=== PATIENT | female | born 1950 | race Caucasian/White ===

== ENCOUNTER 2020-11-01 09:21 | Observation (INO) ==
--- NOTE | 2020-10-26 10:57 | Anesthesiology Consultation ---
Date of Service October 26, 2020 Assessment & Plan (1) Encounter for pre-operative examination: Chart Review Chart Review: Acceptable Risk for Surgery and Patient NOT seen in Pre Admission Testing Consults Requested none History Surgery Operation Date: 11/01/20 10:25 Proposed Procedures p Right Total Knee Arthroplasty - Manan Lyoola DO Height/Weight Height: 5 ft 2.5 in Weight: 61.235 kg Allergies Allergy/AdvReac Type Severity Reaction Status Date / Time house dust Allergy Mild Per Verified 10/23/20 10:07 allergy testing amoxicillin Allergy Unknown PT NOT SURE Verified 10/23/20 10:07 gabapentin [From Neurontin] Allergy Unknown "MESSED MY Verified 10/23/20 10:07 BRAIN UP, ENDED UP IN PSYCH BAIG" lisdexamfetamine Allergy Unknown PT NOT SURE Verified 10/23/20 10:07 [From Vyvanse] morphine Allergy Unknown SWELLING Verified 10/23/20 10:07 tramadol Allergy Unknown PT NOT SURE Verified 10/23/20 10:07 codeine AdvReac Unknown N/V Verified 10/23/20 10:07 dextromethorphan AdvReac Unknown PT REPORTS Verified 10/23/20 10:07 CAN'T TAKE BECAUSE ON WELLBUTRIN Medications Home Medications Medication Instructions Recorded Confirmed Last Taken albuterol sulfate 2 inh INHALATION UD PRN 08/01/20 10/23/20 Unknown ascorbic acid (vitamin C) [Vitamin 500 mg PO DAILY 08/01/20 10/23/20 Unknown C] benzonatate [Tessalon Perles] 100 mg PO UD PRN 08/01/20 10/23/20 Unknown biotin 5,000 mcg SUBLINGUAL DAILY 08/01/20 10/23/20 Unknown bupropion HCl [Wellbutrin XL] 150 mg PO QAM 08/01/20 10/23/20 Unknown cholecalciferol (vitamin D3) 50 mcg PO DAILY 08/01/20 10/23/20 Unknown [Vitamin D3] conjugated estrogens [Premarin] 0.625 mg VAGINAL UD PRN 08/01/20 10/23/20 Unknown cyclobenzaprine [Flexeril] 10 mg PO UD PRN 08/01/20 10/23/20 Unknown dexmethylphenidate [Focalin] 10 mg PO BID 08/01/20 10/23/20 Unknown diclofenac sodium [Voltaren] 2 g TOPICAL UD PRN 08/01/20 10/23/20 Unknown levothyroxine 112 mcg PO QAM 08/01/20 10/23/20 Unknown meclizine 25 mg PO UD PRN 08/01/20 10/23/20 Unknown multivitamin 1 cap PO DAILY 08/01/20 10/23/20 Unknown naproxen 500 mg PO UD PRN 08/01/20 10/23/20 Unknown tolterodine [Detrol LA] 2 mg PO QAM 08/01/20 10/23/20 Unknown zinc 50 mg PO DAILY 08/01/20 10/23/20 Unknown ipratropium bromide See Rx Instructions .ROUTE .COMPLEX 08/15/20 10/23/20 Unknown prednisone See Rx Instructions .ROUTE .COMPLEX 10/23/20 Unknown Past Medical History Medical History ADHD Allergic cough PT REPORTS ALLERGY COUGH - CHRONIC AND UNCHANGED Depression History of Lyme disease Hypothyroid Nerve damage NERVE DAMAMGE - LEFT ULNAR NERVE - PART OF LEFT HAND ALWAYS NUMB Reactive airway disease "MILD FORM OF ASTHMA" Thalassemia minor Past Family History Family History Other No family history of adverse response to anesthesia Past Surgical History Surgical History History of arthroscopy of left knee History of arthroscopy of right knee History of breast surgery FIBROID TUMORS REMOVED BOTH BREASTS - HX LUMPECTOMY (MULTIPLE) AND BIOPSIES (MULTIPLE) History of cholecystectomy History of partial thyroidectomy History of surgery on arm LEFT - ORIF (2 PLATES AND 14 SCREWS) History of tubal ligation Social History Smoking Status: Never smoker Do You Dip or Chew Tobacco: No Hx Alcohol Use: Yes Alcohol type: wine alcohol intake frequency: 0-2 drinks per day Hx Substance Use: No substance use type: does not use Testing Laboratory Results Blood Type A Positive 10/25/20 11:47 Antibody Screen NEGATIVE 10/25/20 11:47 Laboratory Tests 08/07/20 10/25/20 10/25/20 11:28 11:44 11:44 WBC 8.96 Hgb 12.7 Plt Count 291 PT INR APTT Sodium 142 Potassium 4.5 Chloride 108 H Carbon Dioxide 31 BUN 10 Creatinine 0.76 Glucose 86 Hemoglobin A1c 5.2 10/25/20 11:44 WBC Hgb Plt Count PT 10.3 INR 1.0 APTT 24.9 Sodium Potassium Chloride Carbon Dioxide BUN Creatinine Glucose Hemoglobin A1c Electrocardiogram Date: 08/07/20 Normal sinus rhythm, rate 85 bpm Left axis deviation Left ventricular hypertrophy with QRS widening Cannot rule out Septal infarct (cited on or before 09-MAY-2016) Abnormal ECG When compared with ECG of 09-MAY-2016 12:24, No significant change Confirmed by Dony Callahan ([id number]) on 08/07/2020 2:33:30 PM Chest X-Ray Date: 08/07/20 Findings: + NAD
[~2020-11-01 09:21] MED LIST: BUPIVACAINE 0.5 % 5 MG/1 ML PF 10ML VIAL ONE; CLINDAMYCIN 600 MG/54 ML BAG IV SCH; EPINEPHrine INJ 1 MG/ML AMP ONE; LR 500ML BOLUS, THEN 15ML/HR IV SCH; ROPIVACAINE 0.5% HCL/PF 150 MG, BUPIVACAINE 0.75% MPF 20 ML, EPINEPHrine 30MG/30ML (OR ... INSTIL SCH
--- NOTE | 2020-11-01 09:52 | History & Physical Bridge Note ---
Date of Service November 01, 2020 History & Physical Bridge Note I have examined the patient, reviewed the History & Physical and in the interval since the performance of the History & Physical I have noted the following changes of clinical significance: no changes noted
[2020-11-01] MEDS ORDERED: TRANEXAMIC ACID / 0.7% NACL 1,000 MG/100 ML BAG IV ONE ×2 (09:55→09:56)
--- NOTE | 2020-11-01 10:25 | History & Physical Report ---
Date of Service November 01, 2020 Assessment & Plan Admission and Anticipated Discharge Date Admission Date: Plan for total knee arthroplasty right knee postoperative pain management DVT prophylaxis antibiotics History of Present Illness Primary Care Provider: Gladys Rey Allergies Allergy/AdvReac Type Severity Reaction Status Date / Time house dust Allergy Mild Per Verified 11/01/20 10:02 allergy testing amoxicillin Allergy Unknown PT NOT SURE Verified 11/01/20 10:02 gabapentin [From Neurontin] Allergy Unknown "MESSED MY Verified 11/01/20 10:02 BRAIN UP, ENDED UP IN PSYCH BAIG" lisdexamfetamine Allergy Unknown PT NOT SURE Verified 11/01/20 10:02 [From Vyvanse] morphine Allergy Unknown SWELLING Verified 11/01/20 10:02 tramadol Allergy Unknown PT NOT SURE Verified 11/01/20 10:02 codeine AdvReac Unknown N/V Verified 11/01/20 10:02 dextromethorphan AdvReac Unknown PT REPORTS Verified 11/01/20 10:02 CAN'T TAKE BECAUSE ON WELLBUTRIN Home Medications Medication Instructions Recorded Confirmed Type albuterol sulfate 2 inh INHALATION UD PRN 08/01/20 11/01/20 History ascorbic acid (vitamin C) [Vitamin 500 mg PO DAILY 08/01/20 11/01/20 History C] benzonatate [Tessalon Perles] 100 mg PO UD PRN 08/01/20 11/01/20 History biotin 5,000 mcg SUBLINGUAL DAILY 08/01/20 11/01/20 History bupropion HCl [Wellbutrin XL] 150 mg PO QAM 08/01/20 11/01/20 History cholecalciferol (vitamin D3) 50 mcg PO DAILY 08/01/20 11/01/20 History [Vitamin D3] conjugated estrogens [Premarin] 0.625 mg VAGINAL UD PRN 08/01/20 11/01/20 History cyclobenzaprine [Flexeril] 10 mg PO UD PRN 08/01/20 11/01/20 History dexmethylphenidate [Focalin] 10 mg PO BID 08/01/20 11/01/20 History diclofenac sodium [Voltaren] 2 g TOPICAL UD PRN 08/01/20 11/01/20 History levothyroxine 112 mcg PO QAM 08/01/20 11/01/20 History meclizine 25 mg PO UD PRN 08/01/20 11/01/20 History multivitamin 1 cap PO DAILY 08/01/20 11/01/20 History naproxen 500 mg PO UD PRN 08/01/20 11/01/20 History tolterodine [Detrol LA] 2 mg PO QAM 08/01/20 11/01/20 History zinc 50 mg PO DAILY 08/01/20 11/01/20 History ipratropium bromide See Rx Instructions .ROUTE .COMPLEX 08/15/20 11/01/20 Histo ry prednisone See Rx Instructions .ROUTE .COMPLEX 10/23/20 11/01/20 History Past Med/Surg History Medical History ADHD Allergic cough PT REPORTS ALLERGY COUGH - CHRONIC AND UNCHANGED Depression History of Lyme disease Hypothyroid Nerve damage NERVE DAMAMGE - LEFT ULNAR NERVE - PART OF LEFT HAND ALWAYS NUMB Reactive airway disease "MILD FORM OF ASTHMA" Thalassemia minor Surgical History History of arthroscopy of left knee History of arthroscopy of right knee History of breast surgery FIBROID TUMORS REMOVED BOTH BREASTS - HX LUMPECTOMY (MULTIPLE) AND BIOPSIES (MULTIPLE) History of cholecystectomy History of partial thyroidectomy History of surgery on arm LEFT - ORIF (2 PLATES AND 14 SCREWS) History of tubal ligation Family History Other No family history of adverse response to anesthesia Social History Smoking Status: Never smoker Second Hand Exposure: No; Do You Dip or Chew Tobacco: No; Hx Alcohol Use: Yes Alcohol type: wine Hx Substance Use: No Preferred Language: Amharic Communication Ability: Effective Computed Tomography Technician Required: No Beliefs That Will Affect Care: Shinto Shinto Beliefs: ORTHODOXY Current Living Situation: Alone Feels Safe at Home: Yes Safety Concerns: Feels Safe At This Time Assistive Devices: Contacts and Glasses Review of Systems Review of Systems: All systems reviewed & are unremarkable except as noted in HPI & below Constitutional: as per Subjective / HPI Eyes: as per Subjective / HPI Ear, Nose, Mouth, Throat: as per Subjective / HPI Respiratory: as per Subjective / HPI Cardiovascular: as per Subjective / HPI Gastrointestinal: as per Subjective / HPI Genitourinary: as per Subjective / HPI Musculoskeletal: as per Subjective / HPI Integumentary: as per Subjective / HPI Neurologic: as per Subjective / HPI Psychiatric: as per Subjective / HPI Endocrine: as per Subjective / HPI Hematologic / Lymphatic: as per Subjective / HPI Allergy / Immunological: as per Subjective / HPI Physical Exam Physical Exam: Patient presents with severe end-stage tricompartmental degenerative joint disease right knee for right total knee arthroplasty patient is failed all attempts conservative management physical therapy anti- inflammatories relative rest activity modification corticosteroid injectionShe is failed attempted conservative management and physical therapy anti- inflammatories relative rest activity modification she presents with a moderate to large effusion patellofemoral crepitation medial and lateral joint line pain tenderness Constitutional: WD/WN, vitals as above Eyes: PERRL, conjunctivae normal, anicteric sclerae ENMT: external ear and nose normal, oropharynx normal Neck: trachea midline, no thyromegaly Respiratory: normal respiratory effort, lungs clear to auscultation Cardiovascular: RRR, no murmur, no edema Chest (Breasts): normal inspection/palpation of breasts Gastrointestinal (Abdomen): normal bowel sounds, soft, nontender, no hepatosplenomegaly Musculoskeletal: no cyanosis or clubbing, extremities motor strength 5/5 Skin: no rashes, warm and dry Neurologic: patellar DTR's 2+ bilat, sensation intact Psychiatric: A+Ox3, euthymic affect Genitourinary: no vaginal lesions, no adnexal mass Lymphatic: no cervical or axillary lymphadenopathy
[2020-11-01] MEDS ORDERED: fentaNYL citrate 100 MCG/2 ML VIAL ONE (11:42)
[2020-11-01] MEDS ORDERED: MIDAZOLAM HCL 1 MG/ML 2ML VIAL ONE ×2 (11:42→12:40)
[2020-11-01] MEDS ORDERED: PROPOFOL IV EMULSION 10 MG/ML 20 ML VIAL IV ONE ×4 (12:36→14:10)
[2020-11-01] MEDS ORDERED: ORTHO JOINT ANESTHETIC ONE (13:20)
[2020-11-01] MEDS ORDERED: BACITRACIN INJ 50,000 UNIT VIAL ONE (13:20)
[2020-11-01] MEDS ORDERED: HYDROCORTISONE SOD SUCCINATE 100 MG/2 ML VIAL ONE (13:59)
[2020-11-01] MEDS ORDERED: PHENYLEPHRINE HCL 10 MG/ML VIAL ONE (14:25)
[2020-11-01] MEDS ORDERED: ONDANSETRON INJ 2 MG/ML 2 ML VIAL IV PRN ×2 (14:32→16:58)
[2020-11-01] MEDS ORDERED: ATROPINE SULFATE 0.1 MG/ML 10ML SYR IV PRN (14:32)
--- NOTE | 2020-11-01 14:42 | Operative Report ---
Post Operative Report Pre & Post Diagnosis Operation Date: 11/01/20 11:25 Pre-Op Diagnosis: Unilateral primary osteoarthritis of right knee Post-Op Diagnosis: Unilateral primary osteoarthritis of right knee I identified the patient and participated in the time-out.: Yes Procedure Operation Date: 11/01/20 11:25 Actual Procedures p Right Total Knee Arthroplasty(Right utilizing [employer] journey 2 patient matched total knee arthroplasty size 5 femur 3 tibia 11 polyethylene 29 oval patella- Manan Loyola DO Surgeon Manan Loyola DO Ceramic Tile Setter Myron CARCAMO Estimated Blood Loss 10 Findings Consistent with Post-Op Diagnosis Patient presents with severe end-stage tricompartmental degenerative joint disease varus alignment subchondral sclerosis marginal osteophytes moderate to large effusion Specimens Bone and cartilage Drains Medium bore Hemovac Anesthesia Type MAC Spinal Regional Disposition Accompanied Patient To Recovery: No Disposition: Recovery Room Indications Patient presents with severe end-stage DJD right knee no response to conservative management clinic physical therapy anti-inflammatories relative rest activity modification corticosteroid injection Visco supplementation the above intraoperative findings were noted. Description of Procedure After proper prepping and draping of the Right lower extremity anterior midline incision was made over the region of the extensor extensor mechanism after meticulous hemostasis was obtained and maintained in subcutaneous tissues a m edial parapatellar incision was made The patella was subluxed lateralward the medial lateral gutter were cleaned from any hypertrophic synovitis and scar tissue of the distal femoral block was placed and the distal femoral osteotomy cut was made subsequently the chamfers anterior and posterior osteotomy cuts were made utilizing the 4-in-1 block the tibia was subsequently subluxed anteriorward medial and ateral meniscal remnants were excised in their entirety remnants of the anterior and posterior cruciate ligaments were excised in their entirety excellent exposure of the proximal tibia was obtained the tibial osteotomy guide was placed on the proximal tibial osteotomy cut was made once again the knee was irrigated with copious amounts of sterile saline solution the patella was subsequently everted lateralward thickened scar tissue around the patella was removed the patella was subsequently cut utilizing a freehand technique and was drilled prepared for final preparation and placement of patella socially flexion-extension gaps were checked and the equal and symmetric trials were placed to the appropriate femoral and tibial trials with poly-spacer being placed for equal flexion and extension gaps and full range of motion including extension to 0 and flexion to 140 the trial components after having been taken to recovery range of motion was subsequently removed meticulous hemos tasis was obtained and maintained subsequently a knee block injection of joint cocktail including ropivacaine 0.5% 150 mg. Bupivacaine 0.5% epinephrine 1- 200,030 mL's toradol 30 mg dexamethasone 4 mg ketamine 10 mg clonidine 100 micrograms normal saline solution 30 mg was infiltrated into the soft tissues of the posterior knee medial lateral gutters and periosteal synovium special attention was paid to protect neurovascular structures at all times subsequently trial components having been removed the knee was irrigated with sterile saline solution. debris was removed the proximal tibia was subsequently prepared and was made ready for the placement of the tibial component tibial component was also cemented and tamped into position the femoral component was subsequently placed and cemented in the position the patellar component was subsequently cemented in position because hemostasis once again obtained and maintained wound having been thoroughly irrigated with debridement and debridement lavage was performed as well as a medial parapatellar incision closed with #1 Vicryl in interrupted fashion subcutaneous was closed with #2 Vicryl skin was closed with skin clips. PA-C was necessary for prepping and drapping as well as wound closure of deep fascia Sub cutaneous tissue and skin and was necessary for the case. A sterile compressive dressing was placed patient was taken to recovery in stable condition of report dictated by Nir I attest to the content of the Intraoperative Record and any orders documented therein. Any exceptions are noted below. I attest to the content of the Intraoperative Record and any orders documented therein. Any exceptions are noted below.
--- NOTE | 2020-11-01 15:58 | XRay Report ---
XR knee RT 1 or 2V routine HISTORY: 70 years-old Female Surgical Post Op right knee total joint arthroplasty COMPARISON: None TECHNIQUE: 2 views the right knee FINDINGS: Right knee total joint arthroplasty and patella resurfacing. Anterior midline skin leonor are noted along with expected postsurgical soft tissue swelling and deep tissue air with surgical drainage cath eter. No acute fracture or unexpected opaque foreign body. IMPRESSION: Right knee total joint arthroplasty with expected postoperative changes. ACT 112: Negative or not required by law. The above report was generated using voice recognition software. It may contain grammatical, syntax o r spelling errors. Electronically signed by: Gunnar Reyes M.D. 11/01/2020 3:57 PM
--- NOTE | 2020-11-01 16:24 | Anesthesiology Progress Note ---
Date of Service November 01, 2020 Anesthesia Post Procedure Vital Signs Vital Signs: Temp Pulse Pulse Resp BP Pulse Ox 11/01/20 16:00 36.4 C L 83 17 140/91 96 11/01/20 15:50 83 14 134/76 97 11/01/20 15:40 86 16 138/87 96 11/01/20 15:30 88 20 137/82 97 11/01/20 15:21 36.5 C 90 17 144/80 H 98 11/01/20 10:15 37.5 C 88 18 146/82 H 98 Transfer of Care Handoff Completed per policy Notes Mental Status: alert / awake / arousable and participated in evaluation Nausea / Vomiting: adequately controlled Pain: adequately controlled Airway Patency, RR, SpO2: stable & adequate BP & HR: stable & adequate Hydration State: stable & adequate Neuraxial Anesthesia: was administered and sensory block is resolving Anesthetic Complications: no major complications apparent and Pt Satisfied with anesthetic care
[2020-11-01] MEDS ORDERED: oxyCODONE HCL IR 5 MG TAB (IMMEDIATE RELEASE) PO PRN (16:58)
[2020-11-01] MEDS ORDERED: bisacodyL 10 MG SUPP PR PRN (16:58)
[2020-11-01] MEDS ORDERED: NALOXONE HCL 0.4 MG/1 ML VIAL/CARP IV PRN (16:58)
[2020-11-01] MEDS ORDERED: BENZONATATE 100 MG CAPSULE PO PRN (16:58)
[2020-11-01] MEDS ORDERED: MAGNESIUM HYDROXIDE SUSP 30 ML UDC PO PRN (16:58)
[2020-11-01] MEDS ORDERED: HYDROmorphone INJ 0.5 MG/0.5 ML SYR IV PRN (16:58)
[2020-11-01] MEDS ORDERED: MECLIZINE HCL 25 MG TAB PO PRN (17:24)
[2020-11-01] MEDS: FERROUS GLUCONATE 324 MG TAB PO SCH (17:29)
[2020-11-01] MEDS: ACETAMINOPHEN 500 MG TAB PO SCH ×2 (17:32→22:31)
[2020-11-01] MEDS: SODIUM CHLORIDE 0.9% 1000ML 1,000 ML IV SCH (17:33)
[2020-11-01] MEDS ORDERED: SENNA 8.6 MG TAB PO SCH (21:00)
[2020-11-01] MEDS: ASPIRIN 81 MG ECTAB PO SCH (21:05)
[2020-11-01] MEDS: IPRATROPIUM BROMIDE NASAL SPRAY 0.06% 15ML SCH (21:05)
[2020-11-01] MEDS: DOCUSATE SODIUM 100 MG CAP PO SCH (21:05)
[2020-11-01] MEDS: CLINDAMYCIN 600 MG in DEXTROSE 5% 50 ML IV SCH (22:31)
[2020-11-02] MEDS: SODIUM CHLORIDE 0.9% 1000ML 1,000 ML IV SCH (02:54)
[2020-11-02] MEDS: CLINDAMYCIN 600 MG in DEXTROSE 5% 50 ML IV SCH (05:40)
[2020-11-02] MEDS: ACETAMINOPHEN 500 MG TAB PO SCH ×2 (05:40→13:41)
[2020-11-02 06:25] LABS: Hematocrit (blood only) 32.2 % (37-47); Hemoglobin 10.5 g/dL (12.0-16.0); Mean Corpuscular Hemoglobin 21.3 pg (25-34); Mean Corpuscular Hgb Conc 32.6 g/dL (32-36); Mean Corpuscular Volume 65.3 fL (80-100); Platelet Count 273 K/uL (130-400); RDW Coefficient of Variation 17.1 % (11.5-14.5); RDW Standard Deviation 40.5 fL (36.4-46.3); Red Blood Count 4.93 M/uL (4.2-5.4); White Blood Count 13.64 K/uL (4.8-10.8)
[2020-11-02] MEDS ORDERED: LEVOTHYROXINE SODIUM 112 MCG TABLET PO SCH (06:30)
[2020-11-02 06:57] LABS: BUN Creatinine Ratio 19.7 (10-20); Calcium 8.4 mg/dl (8.5-10.1); Creatinine Clr Calc Pharmacy 74.6 ml/min; Est GFR (African American) 106.3; Est GFR (Non-African American) 91.7; Potassium 4.5 mmol/L (3.5-5.1)
[2020-11-02] MEDS: ASPIRIN 81 MG ECTAB PO SCH (08:21)
[2020-11-02] MEDS: DOCUSATE SODIUM 100 MG CAP PO SCH (08:22)
[2020-11-02] MEDS: FERROUS GLUCONATE 324 MG TAB PO SCH (08:22)
[2020-11-02] MEDS: IPRATROPIUM BROMIDE NASAL SPRAY 0.06% 15ML SCH (08:22)
[2020-11-02] MEDS ORDERED: CHOLECALCIFEROL 1,000 UNITS 25 MCG TAB PO SCH (09:00)
[2020-11-02] MEDS ORDERED: MULTIVITAMIN TAB PO SCH (09:00)
[2020-11-02] MEDS ORDERED: ALBUTEROL HFA 8 GM INHALER INH PRN (09:00)
[2020-11-02] MEDS ORDERED: ASCORBIC ACID 500 MG TAB PO SCH (09:00)
[2020-11-02] MEDS ORDERED: TOLTERODINE TARTRATE LA 2 MG CAPCR PO SCH (09:00)
[2020-11-02] MEDS ORDERED: buPROPion XL 150 MG TABCR PO SCH (09:00)
--- NOTE | 2020-11-02 10:45 | Orthopedic Progress Note ---
Date of Service November 02, 2020 Assessment & Plan (1) Arthritis of right knee: Postop day 1 status post right total knee arthroplasty. Right foot drop likely due to intraoperative injection. Continue to follow for now. PT/OT protocols. Weightbearing as tolerated. DVT prophylaxis-aspirin p.o. twice daily, SCDs, NANDO chavez Pain management as written. Addendum: 1314; Pt progressing well with PT/OT. Pt's foot drop resolving. Pt can now dorsiflex the foot. Continues with mild numbness on the dorsum of the foot but resolving. Plan for dc to home today. Continue HV drain. Plan for Home Health to dc dressing and drain tomorrow. Admission and Anticipated Discharge Date Admission Date: November 01, 2020 Subjective Postop day 1 Patient working with occupational therapy at this time. Multiple questions about flexion limitations etc. Denies shortness of breath, chest pain, lightheadedness. Pain is controlled in the right knee but she states she is having numbness from her mid tibia down to her foot and she is unable to dorsiflex the foot at this time. We discussed that it was likely secondary to her intraoperative block and would take time to wear off. No other complaints. Physical Exam Physical Exam: Dressings are clean, dry, and intact. Calves are soft and nontender. Decreased sensation from the mid tibia down to the dorsum of the foot. She has some slight ability to dorsiflex the great toe but otherwise dorsiflexion of the right foot is weak. Plantarflexion is within normal limits. Hemovac drainage was 125 mL from the previous shift. Results & Data ([facility]) Vital Signs (Past 12 Hours) Vital Signs Temp Pulse Resp BP Pulse Ox 11/02/20 07:25 36.6 C 79 16 127/75 99 11/02/20 03:55 36.5 C 82 16 124/74 98 11/01/20 23:11 36.8 C 86 16 114/73 95 Laboratory Results Laboratory Results WBC 13.64 K/uL (4.8-10.8) H 11/02/20 06:02 RBC 4.93 M/uL (4.2-5.4) 11/02/20 06:02 Hgb 10.5 g/dL (12.0-16.0) L 11/02/20 06:02 Hct 32.2 % (37-47) L 11/02/20 06:02 MCV 65.3 fL (80-100) L 11/02/20 06:02 MCH 21.3 pg (25-34) L 11/02/20 06:02 MCHC 32.6 g/dL (32-36) 11/02/20 06:02 RDW Std Deviation 40.5 fL (36.4-46.3) 11/02/20 06:02 RDW Coeff of Bradly 17.1 % (11.5-14.5) H 11/02/20 06:02 Plt Count 273 K/uL (130-400) 11/02/20 06:02 Sodium 142 mmol/L (136-145) 11/02/20 06:02 Potassium 4.5 mmol/L (3.5-5.1) 11/02/20 06:02 Chloride 111 mmol/L (98-107) H 11/02/20 06:02 Carbon Dioxide 28 mmol/L (21-32) 11/02/20 06:02 Anion Gap 3.0 (3-11) 11/02/20 06:02 BUN 13 mg/dl (7-18) 11/02/20 06:02 Creatinine 0.64 mg/dl (0.6-1.2) 11/02/20 06:02 Est Cr Clr Drug Dosing 74.6 ml/min 11/02/20 06:02 Est GFR ( Amer) 106.3 11/02/20 06:02 Est GFR (Non-Af Amer) 91.7 11/02/20 06:02 BUN/Creatinine Ratio 19.7 (10-20) 11/02/20 06:02 Glucose 113 mg/dl (70-99) H 11/02/20 06:02 Calcium 8.4 mg/dl (8.5-10.1) L 11/02/20 06:02 Blood Type A Positive 10/25/20 11:47 Antibody Screen NEGATIVE 10/25/20 11:47
--- NOTE | 2020-11-03 11:37 | Discharge Summary ---
Date of Service November 03, 2020 Admission HPI Per Admitting Provider Salma is a 70 year old female who complains of Right knee pain, presents for pre-op evaluation prior to a right total knee replacement by dr Loyola at [facility]. she complains of pain, decreased range of motion, instability and stiffness in her right knee. she states that the symptoms have been chronic and non- traumatic. Currently the patient states that the symptoms are moderate-severe. The pain is described as aching, sharp and throbbing. The symptoms are aggravated by ascending stairs, daily activities, first steps while awake walking. Admission Exam Per Admitting Provider Physical Exam: Patient presents with severe end-stage tricompartmental degenerative joint disease right knee for right total knee arthroplasty patient is failed all attempts conservative management physical therapy anti- inflammatories relative rest activity modification corticosteroid injectionShe is failed attempted conservative management and physical therapy anti- inflammatories relative rest activity modification she presents with a moderate to large effusion patellofemoral crepitation medial and lateral joint line pain tenderness Constitutional: WD/WN, vitals as above Eyes: PERRL, conjunctivae normal, anicteric sclerae ENMT: external ear and nose normal, oropharynx normal Neck: trachea midline, no thyromegaly Respiratory: normal respiratory effort, lungs clear to auscultation Cardiovascular: RRR, no murmur, no edema Chest (Breasts): normal inspection/palpation of breasts Gastrointestinal (Abdomen): normal bowel sounds, soft, nontender, no hepatosplenomegaly Musculoskeletal: no cyanosis or clubbing, extremities motor strength 5/5 Skin: no rashes, warm and dry Neurologic: patellar DTR's 2+ bilat, sensation intact Psychiatric: A+Ox3, euthymic affect Genitourinary: no vaginal lesions, no adnexal mass Lymphatic: no cervical or axillary lymphadenopathy Principal Diagnosis Right knee osteoarthritis Discharge Data Allergies Allergy/AdvReac Type Severity Reaction Status Date / Time house dust Allergy Mild Per Verified 11/01/20 10:02 allergy testing amoxicillin Allergy Unknown PT NOT SURE Verified 11/01/20 10:02 gabapentin [From Neurontin] Allergy Unknown "MESSED MY Verified 11/01/20 10:02 BRAIN UP, ENDED UP IN PSYCH BAIG" lisdexamfetamine Allergy Unknown PT NOT SURE Verified 11/01/20 10:02 [From Vyvanse] morphine Allergy Unknown SWELLING Verified 11/01/20 10:02 tramadol Allergy Unknown PT NOT SURE Verified 11/01/20 10:02 codeine AdvReac Unknown N/V Verified 11/01/20 10:02 dextromethorphan AdvReac Unknown PT REPORTS Verified 11/01/20 10:02 CAN'T TAKE BECAUSE ON WELLBUTRIN Consultations 11/01/20 16:58 Consult Case Management - Discharge Planning Routine Procedures Performed Operation Date: 11/01/20 11:25 Actual Procedures p Right Total Knee Arthroplasty(Right) - Manan Loyola DO Ordered Studies 11/01/20 05:00 US - OR guided needle placemen Routine Hospital Course (1) Arthritis of right knee: Date of Service November 02, 2020 Assessment & Plan (1) Arthritis of right knee: Postop day 1 status post right total knee arthroplasty. Right foot drop likely due to intraoperative injection. Continue to follow for now. PT/OT protocols. Weightbearing as tolerated. DVT prophylaxis-aspirin p.o. twice daily, SCDs, NANDO chavez Pain management as written. Addendum: 1314; Pt progressing well with PT/OT. Pt's foot drop resolving. Pt can now dorsiflex the foot. Continues with mild numbness on the dorsum of the foot but resolving. Plan for dc to home today. Continue HV drain. Plan for Home Health to dc dressing and drain tomorrow. Admission and Anticipated Discharge Date Admission Date: November 01, 2020 Subjective Postop day 1 Patient working with occupational therapy at this time. Multiple questions about flexion limitations etc. Denies shortness of breath, chest pain, lightheadedness. Pain is controlled in the right knee but she states she is having numbness from her mid tibia down to her foot and she is unable to dorsiflex the foot at this time. We discussed that it was likely secondary to her intraoperative block and would take time to wear off. No other complaints. Physical Exam Physical Exam: Dressings are clean, dry, and intact. Calves are soft and nontender. Decreased sensation from the mid tibia down to the dorsum of the foot. She has some slight ability to dorsiflex the great toe but otherwise dorsiflexion of the right foot is weak. Plantarflexion is within normal limits. Hemovac drainage was 125 mL from the previous shift. Results & Data ([facility]) Vital Signs (Past 12 Hours) Vital Signs Temp Pulse Resp BP Pulse Ox 11/02/20 07:25 36.6 C 79 16 127/75 99 11/02/20 03:55 36.5 C 82 16 124/74 98 11/01/20 23:11 36.8 C 86 16 114/73 95 Laboratory Results Laboratory Results WBC 13.64 K/uL (4.8-10.8) H 11/02/20 06:02 RBC 4.93 M/uL (4.2-5.4) 11/02/20 06:02 Hgb 10.5 g/dL (12.0-16.0) L 11/02/20 06:02 Hct 32.2 % (37-47) L 11/02/20 06:02 Total Time Total Time Spent Total Time Spent (In Minutes): 5 Discharge Plan Discharge Items Patient Disposition: Home - Home Health Services Reason For Visit: Unilateral primary osteoarthritis of right knee Discharge Diagnosis: Osteoarthritis right knee Activity: Per Instructions section Weightbearing: Right weightbearing Weightbearing Comment: As tolerated with walker Non-emergency contact: Surgeon Call non-emergency contact if: your pain is not controlled, your temperature is above 101.5, your wound has increased redness and your wound has increased drainage Follow-up/Referrals: Gladys Rey [Primary Care Provider] - Diet: Regular Addtl Attending Provider Instructions: ACTIVITY RECOMMENDATIONS: SELF CARE INSTRUCTIONS AFTER TOTAL KNEE REPLACEMENT A. You may need to continue a physical therapy program after discharge from the hospital. There are several options available to you. Your doctor will assist you in selecting the best one for you. 1. An out-patient facility 2 to 3 times a week for therapy or home therapy. 2. Continue working on all exercises taught to you in the hospital. Your goals should be to increase bending of your knee to 90 degrees and beyond and to fully straighten your knee. B. You may progress at your own pace from walking with a walker or crutches to a cane; then to no assistive devices. C. Make walking a part of your daily routine. Be up as much as comfortable with rest periods throughout the day. Rest with leg elevation is very important. Use the ice wrap frequently for the first 3-4 weeks. D. There are no restrictions on activities. You may ride in a car, shop, participate in road tester and all social activities. E. Wear the long elastic stockings (NANDO hose) 20 hours a day for 2 weeks after surgery. They can be removed several times a day for laundering and for a bath. F. You may shower, no tub baths until cleared by your doctor. SPECIAL CARE INSTRUCTIONS: VERY IMPORTANT TO READ AND REVIEW A. There are a few signs you need to watch for after you are home. Call [facility] if you notice any of the followin. Increased severe knee pain. Some pain is expected especially when you exercise. 2. Increased swelling in your leg or knee; pain or swelling of the calf muscle in either lower leg. 3. Any fluid drainage from the incision. 4. Shortness of breath or chest pain. B. Please call [facility] at if you have any concerns or questions about your operation or recovery. The doctor or his nurse will return your call promptly. C. You must take antibiotics before dental work, bladder, bowel or other surgery. Your doctor will provide you with a permanent care to carry describing this precaution. IMPORTANT: * REMEMBER TO TAKE ASPIRIN, 81 MG, TWICE DAILY FOR 4 WEEKS UNLESS OTHERWISE DIRECTED. THIS IS YOUR BLOOD THINNER. * CALL IF INCREASED PAIN, REDNESS, DRAINAGE OR FEVER GREATER THAT 101. * WEAR NANDO HOSE 20 HOURS PER DAY FOR 2 WEEKS. * CHITO Dressing - This is a large suction dressing covering your incision. This will help pull any excess drainage from the wound and allow your incision to heal properly. You may shower with this if you can keep the unit outside of the shower. If any bleeding or leakage is noted please call your doctor's office. This will remain on your incision for 7 days and then should be removed. This can be done yourself or by the home nursing staff if applicable. The entire unit is disposable once removed. Once removed, keep incision clean and dry. If redness or drainage is noted, please call your surgeon. . FOLLOW UP VISIT: If appointment is not already scheduled: Please call [facility] to make a follow-up appointment for 2 weeks after your surgery at . Stand-Alone Forms: My [employer], Smoking Cessation Medications and DC Order Prescriptions: New aspirin 81 mg Tablet,Delayed Release (Dr/Ec) 81 mg PO BID 30 Days Qty: 60 RF: 0 acetaminophen 500 mg Tablet 1,000 mg PO Q8 14 Days Qty: 84 RF: 0 oxycodone 5 mg Tablet 5 mg PO Q4H MDD 6 PRN (Reason: pain) Qty: 30 RF: 0 ondansetron 4 mg tablet,disintegrating 4 mg PO Q6H Qty: 10 RF: 0 Continued tolterodine [Detrol LA] 2 mg Capsule,Extended Release 24hr 2 mg PO QAM RF: 0 cyclobenzaprine 10 mg Tablet 10 mg PO UD PRN (Reason: MUSCLE SPASMS) RF: 0 dexmethylphenidate [Focalin] 10 mg Tablet 10 mg PO BID RF: 0 ascorbic acid (vitamin C) [Vitamin C] 500 mg Tablet 500 mg PO DAILY RF: 0 meclizine 25 mg Tablet 25 mg PO UD PRN (Reason: Dizziness) RF: 0 benzonatate [Tessalon Perles] 100 mg Capsule 100 mg PO UD PRN (Reason: Cough) RF: 0 Premarin 0.625 mg/gram Cream 0.625 mg VAGINAL UD PRN (Reason: URINARY URGENCY ) RF: 0 multivitamin Capsule 1 cap PO DAILY RF: 0 levothyroxine 112 mcg Tablet 112 mcg PO QAM RF: 0 cholecalciferol (vitamin D3) [Vitamin D3] 25 mcg (1,000 unit) Capsule 50 mcg PO DAILY RF: 0 bupropion HCl [Wellbutrin XL] 150 mg Tablet Extended Release 24 Hr 150 mg PO QAM RF: 0 zinc 50 mg Capsule 50 mg PO DAILY RF: 0 albuterol sulfate 90 mcg/actuation Aerosol Powdr Breath Activated 2 inh INHALATION UD PRN (Reason: REACTIVE AIRWAY DISORDER) RF: 0 biotin 5,000 mcg Tablet, Sublingual 5,000 mcg SUBLINGUAL DAILY RF: 0 ipratropium bromide 42 mcg (0.06 %) spray,non-aerosol See Rx Instructions .ROUTE .COMPLEX RF: 0 prednisone See Rx Instructions .ROUTE .COMPLEX RF: 0 Discontinued naproxen 500 mg Tablet 500 mg PO UD PRN (Reason: Pain) RF: 0 diclofenac sodium [Voltaren] 1 % Gel 2 g TOPICAL UD PRN (Reason: Pain) RF: 0 Discharge Orders: Discharge Order (Routine); Ordered 11/02/20 Ordered By: Myron Voss Admission Data Admit Date/Time: 11/01/20 15:41 Attending Provider: Manan Loyola Admit Provider: Manan Loyola Primary Care Provider: Gladys Rey Other Providers: [facility] Fax Other Interventions: Discharge Summary Assessment (RN) Last Done: 11/02/20 13:37
== END 2020-11-02 15:47 | disposition home health service (06) ==
LOC: ASU 09:21 → 3E 09:21